=== PATIENT | female | born 1970 | race Caucasian/White ===

== ENCOUNTER 2023-09-07 22:26 | Observation (INO) | payer OTHER ==
[~2023-09-07] VITALS: Ht 162.6 cm; Wt 110.7 kg
[2023-09-08] MEDS ORDERED: SEMGLEE (Y100 UNIT/2 SC (01:18)
[2023-09-08] MEDS ORDERED: MONT10T PO (01:18)
[2023-09-08] MEDS ORDERED: FLUTICASONE-SA1 EAC9 INH (01:19)
[2023-09-08] MEDS ORDERED: SODIUM FLUORID100 ML UD (01:21)
[2023-09-08] MEDS ORDERED: MOUNJARO5 MG/0.5 M SC (01:23)
[2023-09-08] MEDS ORDERED: METFORMIN HCL500 M3 PO (01:27)
[2023-09-08] MEDS ORDERED: SYNTHROID175 MC1 PO (01:28)
[2023-09-08] MEDS ORDERED: ALBU90OI INH (05:22)
[2023-09-08] MEDS ORDERED: ASPIR 8181 M1 PO (05:22)
[2023-09-08] MEDS ORDERED: BIOTIN1 MG PO (05:23)
[2023-09-08] MEDS ORDERED: CYCL10 PO (05:23)
[2023-09-08] MEDS ORDERED: VITAMIN D33000 UNIT PO (05:23)
[2023-09-08] MEDS ORDERED: Flonase 0.05% N16 GM (05:24)
[2023-09-08] MEDS ORDERED: IBUP600 PO (05:25)
[2023-09-08] MEDS ORDERED: Percocet 5-3251 EACH PO (05:26)
[2023-09-08 05:57] VITALS: BP 184/101
--- NOTE | 2023-09-08 06:49 | NUR ---
0600 PT ARRIVED FROM [facility] VIA AMBULANCE IN STABLE CONDITION. DENIES ANY DISCOMFORT AT THIS TIME. PT HAS 5 HEALING/SCABBED OVER INCISIONS ON ABD, THE L SIDE INCISION HAS SLIGHT REDNESS AROUND THE SCAB. TELE NOT ORDERED AT THIS TIME, EXPECTING TELE TO BE ORDERED, WILL PLACE ON AND GET RYTHYM WHEN IT IS READING. NO OTHER APPARENT SIGNS OF DISTRESS. CALL LIGHT IS IN REACH.
--- NOTE | 2023-09-08 06:51 | NUR ---
PT LYING IN BED, AWAKE, DENIES ANY DISCOMFORT AT THIS TIME. DENIES NEED FOR ANYTHING AT THIS TIME. NO OTHER APPARENT SIGNS OF DISTRESS. NO OTHER CHANGES THIS SHIFT. CALL LIGHT IS IN REACH.
[2023-09-08 07:21] VITALS: BP 173/86
[2023-09-08 11:53] VITALS: BP 135/78
--- NOTE | 2023-09-08 16:47 | NUR ---
SHIFT SUMMARY PATIENT IS ALERT AND ORIENTED. PATIENT HAS HAD ELEVATED TROPONINS, DR IS AWARE. PATIENT HAS HAD NO ACUTE EVENTS THIS SHIFT. VITAL SIGNS REVIEWED. PATIENT HAS HAD THE FIRST PART OF STRESS TEST DONE TODAY, SECOND DAY OF STRESS TEST IS BEING DONE TOMORROW. SEE DIET/NPO ORDERS. PATIENT HAS HAD NO COMPLAINTS OF SOB, NAUSEA, VOMITTING OR PAIN THIS SHIFT. BED IN LOCKED AND LOWEST POSITION. CALL LIGHT IN PLACE.
[2023-09-08 16:52] VITALS: BP 149/79
[2023-09-08 20:01] VITALS: BP 137/80
[2023-09-09 05:15] LABS: BASOPHILS ABSOLUTE AUTO 0.12 K/mm3 (0.00-0.23); BASOPHILS PERCENT AUTO 1 % (0-2); EOSINOPHILS ABSOLUTE AUTO 0.59 K/mm3 (0.00-0.68); EOSINOPHILS PERCENT AUTO 5 % (0-6); Hematocrit 39.7 % (33.0-51.0); Hemoglobin 12.8 g/dL (11.5-16.0); IMMATURE GRAN ABSOLUTE AUTO 0.06 K/mm3 (0.00-0.10); IMMATURE GRAN PERCENT AUTO 1 % (0-1); LYMPHOCYTES ABSOLUTE AUTO 3.94 K/mm3 (0.84-5.20); LYMPHOCYTES PERCENT AUTO 33 % (21-46); MONOCYTES ABSOLUTE AUTO 1.37 K/mm3 (0.16-1.47); MONOCYTES PERCENT AUTO 11 % (4-13); Mean Corpuscular HGB 27.2 pg (26.0-34.0); Mean Corpuscular HGB Conc 32.2 g/dL (31.5-36.5); Mean Corpuscular Volume 85 fL (80-100); Mean Platelet Volume 10.2 fL (9.1-12.4); NEUTROPHILS ABSOLUTE AUTO 6.03 K/mm3 (1.96-9.15); NEUTROPHILS PERCENT AUTO 50 % (41-73); Platelet Count 332 K/mm3 (150-400); RDW Standard Deviation 43.3 fL (35.1-46.3); White Blood Cell Count 12.11 K/mm3 (4.00-11.30)
--- NOTE | 2023-09-09 05:27 | NUR ---
Shift Summary Pt had one minor episode of RUQ chest pain after her dinner, pain did not radiate and there were no other s/s of SD. Pain resloved itself shortly after. Pt slept well t/o the night. I rcvd two calls from tele this AM that pt was experiencing bradycardia down to the mid 30's. Both times I checked on pt who was asymptomatic and her HR returned to around 70 when awoken.
[2023-09-09 05:52] LABS: Alanine Aminotransfer (ALT/SGP 28 U/L (12-78); Albumin, Blood 3.1 g/dL (3.4-5.0); Albumin/Globulin Ratio 0.8 (0.8-1.8); Alk Phos 66 U/L (50-136); Anion Gap 4 mmol/L (6-16); Aspartate Aminotrans (AST/SGOT 14 U/L (12-37); Bilirubin, Total 0.3 mg/dL (0.1-1.0); Blood Urea Nitrogen 20 mg/dL (8-24); Bun/Creatinine Ratio 26.3 (12.0-20.0); CHOL/HDL RATIO 6.8; CO2, Blood 29 mmol/L (21-32); Calcium, Blood 9.2 mg/dL (8.5-10.1); Chloride, Blood 108 mmol/L (98-108); Cholesterol 232 mg/dL (50-200); Creatinine, Blood 0.76 mg/dL (0.40-1.00); Globulin, Blood 4.1 g/dL (2.2-4.0); Glomerular Filtration Rate 94 (60-); Glucose, Blood 135 mg/dL (70-99); HDL Cholesterol 34 mg/dL (>39); LDL/HDL RATIO 4.7; Low Density Lipoprotein Chol 158 mg/dL (0-110); Sodium, Blood 141 mmol/L (136-145); Total Protein, Blood 7.2 g/dL (6.4-8.2); Triglycerides 199 mg/dL (30-160); Very Low Density Lipoprot Chol 39 mg/dL (6-32)
[2023-09-09 07:34] VITALS: BP 140/76
[2023-09-09 07:35] VITALS: BP 140/76
--- NOTE | 2023-09-09 09:00 | NUR ---
PT PLEASANT TALKATIVE. A/O X4. DENIES CHEST PAIN, PRESSURE, OR ARM WEAKNESS. STATES ONLY SYMPTOM WAS HEADACHE AND HTN. WHICH WAS WHAT BROUGHT HER HERE. H/R REG, NO MURMUR NOTED. PER TELE NO EVENTS LAST NITE. NSR AT 84. LUNGS CLEAR, RESP EASY, UNLABORED. ON R.A. BT X4 LAST BM YEST PER PT. VOIDS INDEPENDANT PER BATHROOM. STRESS TEST BEING DONE TODAY. FIRST PART DONE AT AROUND 8AM. NO NEW CONCERNS AT THIS TIME. BED IN LOW POSITION, CALL LITE IN REACH, CALLS APPROP
[2023-09-09 10:11] LABS: HEMOGLOBIN A1C 6.4 % (4.8-5.6)
[2023-09-09] MEDS ORDERED: ATOR80 PO (14:46)
[2023-09-09] MEDS ORDERED: NITR.4SL SL (14:47)
[2023-09-09] MEDS ORDERED: LISI20 PO (14:47)
[2023-09-09] MEDS ORDERED: FURO20 PO (14:47)
--- NOTE | 2023-09-09 16:50 | NUR ---
1552 PT IV PULLED BY AIDE. TELE REMOVED . DISCHARGE REVIEWED WITH PT AND SPOUSE. MEDS REVIEWED. PT VERBALIZED UNDESTANDING. PT OUT DOOR WITH SPOUSE AT [id number]
== END 2023-09-09 15:52 | disposition home or self-care (01) ==
LOC: MEDS 22:26
PROVIDERS: Internal Medicine; ADMIT Internal Medicine
DX: I16.0 Hypertensive urgency (principal); E66.01 Morbid (severe) obesity due to excess calories; G47.33 Obstructive sleep apnea (adult) (pediatric); E03.9 Hypothyroidism, unspecified; E78.5 Hyperlipidemia, unspecified; I25.2 Old myocardial infarction; E11.9 Type 2 diabetes mellitus without complications; F32.9 Major depressive disorder, single episode, unspecified; R79.89 Other specified abnormal findings of blood chemistry; Z98.84 Bariatric surgery status; Z79.82 Long term (current) use of aspirin; Z79.899 Other long term (current) drug therapy; Z79.84 Long term (current) use of oral hypoglycemic drugs; Z79.4 Long term (current) use of insulin; Z88.0 Allergy status to penicillin; Z88.8 Allergy status to other drugs, medicaments and biological substances
CPT/HCPCS: 36415; 78452; 80053; 80061; 82947; 83036; 84484; 85025; 93005; 93010; 93017; 93306; 94640; 94664; 94760; 96372; A9270; A9500; G0378; J0280; J1650; J1815; J2785; J7030